=== PATIENT | male | born 2000 | race Caucasian/White ===

== ENCOUNTER 2024-10-30 12:05 | Outpatient (REF) | payer OTHER, SELFPAY ==
--- OUTSIDE RECORDS SUMMARY | 2024-10-30 03:30 | XMS_ITS ---
Author Organization Luisito Rocha MD Address [address] [place] [phone] Care Team Providers Care Unit Technician Name Role Phone Luisito Rocha Primary Care Provider REASON FOR VISIT yearly fasting labs Problems No Known Problems Encounters Encounter Location Date Provider Diagnosis Luisito Rocha MD [address] [place] [address] [place] [phone] 10/30/2024 Luisito Rocha Blood tests for routine general physical examination Z00.00 Assessments Encounter Date Diagnosis (ICD Code) Assessment Notes Treatment Notes Treatment Clinical Notes Section Notes 10/30/2024 Blood tests for routine general physical examination (ICD-10 - Z00.00) Plan Of Treatment Pending Test Test Name Order Date Complete Blood Count Auto Diff 5 Comprehensive [place]. Panel Fast 5 Lipid Panel 10/30/2024 UA ClnCatch+Micro w/rflx Cult 10/30/2024 Next Appt Details Provider Name:Luisito Christian ier, 11/06/2024 09:30:00 AM, [address] [place] [address], Suite [facility], [place], [place], [phone], Progress Notes * Gamal CANOOB:2000 ( 24 yo M)Acc No.[id number]:10/30/2024 Progress Note Patient: Onur CHAU Provider: Alfredo Rocha MD :2000 A ge:24 Y S ex:Male Date:10/30/2024 [id number] Subjective: * Chief Complaints: * 1 . Yearly fasting labs. * Medical History: Objective: * Vitals: Assessment: * Assessment: 1. B lood tests for routine general physical examination - Z00.00 (Primary) Plan: * Treatment: * Procedure Codes: 3 6415 VENIPUNCT, ROUTINE* * * The named appointment provid er may or may not be the originator of this progress note, and it is not deemed complete until electronically signed by the appointment provider. Sign off status: Pending * Provider: Alfredo Rocha MD Date: 10/30/2024 Generated for Dhaval garcia/Beth/Denishaitting on: 10/30/2024 12:43 PM EDT
[2024-10-30 12:10] LABS: MANUAL DIFF FLAG NO
--- OUTSIDE RECORDS SUMMARY | 2024-10-30 12:43 | XMS_ITS | Encounter Summary ---
Author Organization [facility] Address [address] [place] [phone] Phone Care Team Providers Care Mangle Press Catcher Name Role Phone Richie Marie MD Primary Care Provider Encounter Details Date Type Department Care Team (Late st Contact Info) Description 10/11/2010 Conversion Encounter [facility] [address] [place] [address] [place] [phone] Social History Tobacco Use Types Packs/Day Years Used Date Smoking Tobacco: Never Assessed Sex and Gender Information Value Date Recorded Sex Assigned at Not on file Legal Sex Male 6:39 PM EDT Gender Identity Not on file Sexual Orientation Not on file documented as of this encounter Plan of Treatment Not on file documented as of this encounter Visit Diagnoses Not on filedocumented in this encounter Care Teams Mangle Press Catcher Relationship Specialty Start Date End Date Richie Marie MD [address] [place] [address] [place] [id number] PCP - General 07/03/17 documented as of this encounter
--- OUTSIDE RECORDS SUMMARY | 2024-10-30 12:43 | XMS_ITS | Clinical Summary ---
Author Organization [facility] Address [address] [place] [phone] Phone Care Team Providers Care Tool And Fixture Repairer Name Role Phone Richie Marie MD Primary Care Provider [phone] Allergies No known active allergies Medications No known medications Immunizations Immunization Administration Dates Next Due DTaP 5 03/14/2004, 1,1999,07/03,1999 H1N1 Inj Preservative Free 2009 HPV Vaccine 9 Valent 02/21/2017 Hep A, ped/adol 11/21/2016,11/04/2015 Hep B, ped/adol 05/15/2000,1999,1999 Hib (PRP-T) 05/15/2000, 0,1999,04/27 IPV 03/14/2004, 1,1999,04/27 Influenza, injectable, quadr ivalent, preservative free 03/11/2018,11/21/2016,11/04/2015 Influenza, injectable, trivalent 12/10/2008,01/25,02/05/2007 Influenza, intranasal, quadrivalent 01/18/2015,1 03/24/2013,12/27/2012 Influenza, intranasal, trivalent 10/22/2011,09/25 MMR 03/14/2004,02/12/2000 Meningococcal Conj (Menactra) MCV4P 11/04/2015,0 10/11/2010 PPD Test 08/13/2017 Pneumococcal Conjugate 05/15/2000,02/12/2000,04/1999 Tdap 10/22/2011 Varicella 10/11/2010,02/12/2000 Family History Medical History Relation Name Comments No Known Problems Father uKsh No Known Problems Mother Diana No Known Problems Sister Gaurav Relation Name Status Comments Father Kush Alive Mother Diana Alive Sister Gaurav Alive Social History Tobacco Use Types Packs/Day Years Used Date Smoking Tobacco: Never Smokeless Tobacco: Never Comments:Never Smoker Sex and Gender Information Value Date Recorded Sex Assigned at Not on file Legal Sex Male 6:39 PM EDT Gender Identity Not on file Sexual Orientation Not on file Last Filed Vital Signs Vital Sign Reading Time Taken Comments Blood Pressure - - Pulse 80 11/21/2016 1:46 PM EDT Temperature 37.2 C (98.9 F) 03/11/2018 10:39 AM EST Respiratory Rate - - Oxygen Saturation - - Inhaled Oxygen Concentration - - Weight 55.2 kg (121 lb 11.2 oz) 11/21/2016 1:46 PM EDT Height 174.6 cm (5' 8.75 ) 11/21/2016 1:46 PM ED T Body Mass Index 18.1 11/21/2016 1:46 PM EDT Plan of Treatment Health Maintenance Due Date Last Done Comments HPV Vaccines (2 - Male 3-dose series) 03/21/2017 02/21/2017 DTaP,Tdap,and Td Vaccines (7 - Td or Tdap) 10/21/2021 10/22/2011, 03/14/2004, 10/22/2000, Additional history exists Influenza Vaccines (#1) 2024 03/11/19 19, 11/21/2016, 11/04/2015, Additional history exists COVID-19 Vaccine (1 - season) 2024 HIB Vaccines Completed 05/15/2000, 08/25, 1999, Additional history exists Hepatitis B Vaccines Completed 05/15/2000, 1999, 1999 Pneumococcal Vaccine Completed 05/15/2000, 02/12/2000, 1999 IPV Vaccines Completed 03/14/2004, 09/26, 1999, Additional history exists MMR Vaccines Completed 03/14/2004, 02/12/2000 Varicella Vaccines Completed 10/11/2010, 02/12/2000 Meningococcal Vaccine Completed 11/04/2015, 011 Hepatitis A Vaccines Completed 11/21/2016, 11/04/19 16 Men B Vaccine Aged Out No longer abhilashg tutu based on patient's age to complete this topic Insurance [facility] [employer] [id number] Care Teams Tool And Fixture Repairer Relationship Specialty Start Date End Date Richie Marie MD [facility] [facility] [place] [address] PCP - General 07/03/17
--- OUTSIDE RECORDS SUMMARY | 2024-10-30 12:43 | XMS_ITS | Patient Health Record ---
Author Organization Luisito Rocha MD Address [address] [place] [phone] Care Team Providers Care Chaperone Name Role Phone Luisito Rocha Primary Care Provider [phone] Reason For Referral No Information Immunizations Vaccine Route Administration Date Status Comme nts Fluarix Quadrivalent IM Intramuscular 12/09/2018 Administe red Social History Tobacco Use: Social History Observation Description Date Details (start date - stop date) Never Smoker NA - NA Tobacco Use/Smoking Question Answer Notes Patient is a nonsmoker Additional Findings: Tobacco Non-User Cu rrent non-smoker, currently using no form of tobacco Alcohol Screen Question Answer Notes Did you have a drink contain ing alcohol in the past year? Yes How often did you have a dri nk containing alcohol in the past year? 2 to 4 times a month (2 points) How many drinks did you have on a typical day when you were drinking in the past year? 3 or 4 drinks (1 point) How often did you have 6 or more drinks on one occasion in the past year? Never (0 point) Points 3 Interpretation Negative Problems No Known Problems Encounters Encounter Location Date Provider Diagnosis Luisito Rocha MD [address] [place] [phone] 10/30/2024 Luisito Rocha Blood tests for routine general physical examination Z00.00 Assessments Encounter Date Diagnosis (ICD Code) Assessment Notes Treatment Notes Treatment Clinical Notes Section Notes 10/30/2024 Blood tests for routine general physical examination (ICD-10 - Z00.00) Plan Of Treatment Pending Test Test Name Order Date Complete Blood Count Auto Diff 5 Comprehensive [place]. Panel Fast 5 Lipid Panel 10/30/2024 UA ClnCatch+Micro w/rflx Cult 10/30/2024 Next Appt Details Provider Name:Luisito pandey, 11/06/2024 09:30:00 AM, [address], [address], [place], [place], [phone], Insurance Providers Payer Name Payer Address Payer Phone Subscriber Number Group Number Insured Name Patient Relationship to Insured Coverage Start Date Coverage End Date [facility] [employer] [address] [place] [address] [id number] Onur Herman Self - patient is the insured
[2024-10-30 12:59] LABS: Hematocrit 43.3 % (42.0-52.0); Hemoglobin 15.2 g/dl (14.0-18.0); Imm Gran Abs Auto 0.01 X10*3/uL (0.00-0.03); Imm Gran Pct Auto 0.2 % (0.0-0.4); Lymphocytes Absolute Auto 1.9 X10*3/uL (1.2-4.9); Mean Corpuscular HGB Conc 35.1 g/dl (31.0-36.0); Mean Corpuscular Hemoglobin 31.8 pg (27.0-33.0); Mean Corpuscular Volume 90.6 fL (80.0-98.0); NRBC Abs Auto 0.000 X10*3/uL (0.0-0.012); NRBC Pct Auto 0.0 /100WBC (0.0-0.2); Platelet Count 293 X10*3/uL (160-400); Red Blood Count 4.78 X10*6/uL (4.60-5.80); White Blood Count 5.7 X10*3/uL (4.8-10.8)
[2024-10-30 13:01] LABS: Alanine Aminotransferase 31 U/L (0-40); Albumin Level 4.9 g/dL (3.5-5.0); Alkaline Phosphatase 62 U/L (39-117); Anion Gap 13 (12-20); Aspartate Amino Transferase 27 U/L (5-37); Blood Urea Nitrogen 12 mg/dL (9-16); Calcium 9.3 mg/dL (8.4-10.2); Carbon Dioxide 25 mmol/L (22-29); Chloride 106 mmol/L (96-108); Cholesterol 191 mg/dL (<200); Estimated Glomerular Filt Rate > 60; HDL Cholesterol 64 mg/dL (>40); Potassium 3.6 mmol/L (3.3-5.1); Sodium 140 mmol/L (135-145); Total Protein 7.4 g/dL (6.5-8.0); Triglycerides 110 mg/dL (<150)
[2024-10-30 13:02] LABS: Appearance Urine Clear; Glucose Urine UA Negative (Negative); PH 6.5 (5.0-9.0); Specific Gravity - Urine 1.020 (1.005-1.025)
== END 2024-10-30 12:06 | disposition home or self-care (01) ==
LOC: HO.LNP 12:05
PROVIDERS: Visit Provider Internal Medicine
DX: Z00.00 Encounter for general adult medical examination without abnormal findings (principal); Z13.6 Encounter for screening for cardiovascular disorders
CPT/HCPCS: 80053; 80061; 81001; 85025